=== PATIENT | male | born 1980 | race American Indian/Alaskan Native ===

== ENCOUNTER 2020-08-22 18:27 | Observation (INO) | payer BC ==
[2020-08-22 20:06] LABS: Basophils % (Auto) 0.7 % (0.0-1.8); Eosinophils % (Auto) 0.9 % (0.0-4.3); Hematocrit 39.3 % (35.5-45.6); Hemoglobin 13.2 gm/dl (11.8-15.2); Lymphocytes # (Auto) 1.7 K/mm3 (1.2-5.4); Lymphocytes % (Auto) 33.6 % (13.4-35.0); Mean Corpuscular HGB Conc 34 % (32-34); Mean Corpuscular Volume 103 fl (84-94); Monocytes # (Auto) 0.5 K/mm3 (0.0-0.8); Monocytes % (Auto) 9.6 % (0.0-7.3); Platelet Count 170 K/mm3 (140-440); Red Blood Count 3.81 M/mm3 (3.65-5.03); Red Cell Distribution Width 12.8 % (13.2-15.2)
--- NOTE | 2020-08-22 20:26 | XRay Report ---
CHEST 2 VIEWS INDICATION / CLINICAL INFORMATION: chest pain. COMPARISON: None available. FINDINGS: SUPPORT DEVICES: None. HEART / MEDIASTINUM: No significant abnormality. LUNGS / PLEURA: No significant pulmonary or pleural abnormality. No pneumothorax. ADDITIONAL FINDINGS: No significant additional findings. IMPRESSION: 1. No acute findings. Signer Name: Waldo Beth MD Signed: 08/22/2020 8:22 PM Workstation Name: [id number]
[2020-08-22 20:32] LABS: Alanine Aminotransferase 18 units/L (7-56); Albumin 4.3 g/dL (3.9-5); BUN/Creatinine Ratio 12; Blood Urea Nitrogen 12 mg/dL (9-20); Calcium 9.2 mg/dL (8.4-10.2); Hemolysis Index 13
--- NOTE | 2020-08-22 22:32 | Emergency Department Report ---
ED Chest Pain HPI - General Chief Complaint: Chest Pain Stated Complaint: CHEST PAIN/LT ARM NUMBNESS/PRESSURE Time Seen by Provider: 08/22/20 22:26 Source: patient Mode of arrival: Ambulatory Limitations: No Limitations - History of Present Illness Initial Comments: 40-year-old -[place]ian male presents to the emergency room complaining of chest pain for 3 to 4 weeks with left arm numbness yesterday. Patient has a current history of prostate issues and is currently started on Flomax 1 week ago by urologist. Patient states he last saw his primary care doctor 1 year ago for a physical. Patient denies any recent trauma. Patient does admit to nausea burping with no vomiting. Patient also reports that pain is in the middle of his back between his shoulder blades. Patient stated last night he woke up the patient is resting comfortably and feeling better, is alert and in no distress. With belching and burping took some apple cider vinegar did not relieve his pain. MD Complaint: chest pain Onset/Timin -: week(s) Pain Radiation: LUE Severity scale (0 -10): 5 - Related Data Home Medications Medication Instructions Recorded Confirmed Last Taken Tamsulosin [Flomax] 0.4 mg PO QDAY 08/22/20 08/22/20 08/21/20 19:30 Previous Rx's Medication Instructions Recorded Last Taken Type Famotidine [Pepcid] 20 mg PO BID #60 tablet 08/23/20 Unknown Rx Allergies Allergy/AdvReac Type Severity Reaction Status Date / Time No Known Allergies Allergy Unverified 09/26/13 17:17 Heart Score - HEART Score History: Moderately suspicious EKG: Normal Age: < 45 Risk factors: No known risk factors Troponin: < normal limit HEART Score: 1 ED Review of Systems ROS: Stated complaint: CHEST PAIN/LT ARM NUMBNESS/PRESSURE Other details as noted in HPI Comment: All other systems reviewed and negative ED Past Medical Hx - Past Medical History Previous Medical History?: No - Surgical History Past Surgical History?: No - Social History Smoking Status: Never Smoker Substance Use Type: Marijuana - Medications Home Medications: Home Medications Medication Instructions Recorded Confirmed Last Taken Type Tamsulosin [Flomax] 0.4 mg PO QDAY 08/22/20 08/22/20 08/21/20 19:30 History Famotidine [Pepcid] 20 mg PO BID #60 tablet 08/23/20 Unknown Rx ED Physical Exam - General Limitations: No Limitations General appearance: alert, in no apparent distress - Head Head exam: Present: atraumatic, normocephalic - Eye Eye exam: Present: normal appearance - ENT ENT exam: Present: normal exam, mucous membranes moist - Neck Neck exam: Present: normal inspection, full ROM - Respiratory Respiratory exam: Present: normal lung sounds bilaterally. Absent: respiratory distress - Cardiovascular Cardiovascular Exam: Present: regular rate, normal rhythm. Absent: systolic murmur, diastolic murmur, rubs, gallop - GI/Abdominal GI/Abdominal exam: Present: soft, normal bowel sounds - Rectal Rectal exam: Present: deferred - Extremities Exam Extremities exam: Present: normal inspection, full ROM - Back Exam Back exam: Present: normal inspection - Neurological Exam Neurological exam: Present: alert, oriented X3, normal gait - Psychiatric Psychiatric exam: Present: normal affect, normal mood - Skin Skin exam: Present: warm, dry, intact, normal color. Absent: rash ED Course Vital Signs 08/22/20 08/23/20 08/23/20 19:07 00:18 00:19 Temperature 98.5 F Pulse Rate 65 50 L Respiratory 18 50 H 18 Rate Blood Pressure 120/70 129/79 [Right] O2 Sat by Pulse 99 100 Oximetry REECE score - Reece Score Age > 65: (0) No Aspirin use within the Past 7 Days: (0) No 3 or more CAD Risk Factors: (0) No 2 or more Angina events in past 24 hrs: (0) No Known CAD with more than 50% Stenosis: (0) No Elevated Cardiac Markers: (0) No ST Deviation Greater than 0.5mm: (0) No REECE Score: 0 ED Medical Decision Making - Lab Data Result diagrams: 08/23/20 07:08 08/23/20 07:08 - EKG Data Rate: bradycardia - Radiology Data Radiology results: report reviewed [facility] [address] [place] [address] XRay Report Signed Patient: JEANMARIE MARTINS MR#: [id number] : 1980 Acct:[id number] Age/Sex: 40 / M ADM Date: 08/22/20 Loc: ED Attending Dr: Ordering Physician: GENARO ARCHIBALD NP Date of Service: 08/22/20 Procedure(s): XR chest routine 2V Accession Number(s): [id number] cc: GENARO ARCHIBALD NP Fluoro Time In Minutes: CHEST 2 VIEWS INDICATION / CLINICAL INFORMATION: chest pain. COMPARISON: None available. FINDINGS: SUPPORT DEVICES: None. HEART / MEDIASTINUM: No significant abnormality. LUNGS / PLEURA: No significant pulmonary or pleural abnormality. No pneumothorax. ADDITIONAL FINDINGS: No significant additional findings. IMPRESSION: 1. No acute findings. Signer Name: Waldo Beth MD Signed: 08/22/2020 8:22 PM Workstation Name: [id number] Transcribed By: JAMES Dictated By: Waldo Beth MD Electronically Authenticated By: Waldo Beth MD Signed Date/Time: 08/22/202021 DD/ 21 TD/TT: Print Cancel - Medical Decision Making 40-year-old -N[place]ian male presents to the emergency room complaining of chest pain for 3 to 4 weeks with left arm numbness yesterday. Patient has a cur rent history of prostate issues and is currently started on Flomax 1 week ago by urologist. Patient states he last saw his primary care doctor 1 year ago for a physical. Patient denies any recent trauma. Patient does admit to nausea burping with no vomiting. Patient also reports that pain is in the middle of his back between his shoulder blades. Patient stated last night he woke up the patient is resting comfortably and feeling better, is alert and in no distress. With belching and burping took some apple cider vinegar did not relieve his pain. Discussed patient's case with Dr. Kahn ER attending recommends patient to be admitted for relation. Spoke to hospitalist Dr. Bennett he will come and evaluate patient. Critical care attestation.: If time is entered above; I have spent that time in minutes in the direct care of this critically ill patient, excluding procedure time. ED Disposition Clinical Impression: Atypical chest pain Disposition: OP ADMIT IP TO THIS HOSP Is pt being admited?: Yes Does the pt Need Aspirin: Yes Condition: Stable
[2020-08-22] MEDS ORDERED: MORPHINE 2 MG/1 ML INJ IV PRN (23:00)
[2020-08-22] MEDS ORDERED: NITROGLYCERIN 0.4 MG TAB SUBL SL PRN (23:00)
[2020-08-22] MEDS ORDERED: ACETAMINOPHEN 325 MG TAB PO PRN ×2 (23:00)
[2020-08-22] MEDS ORDERED: ONDANSETRON 4 MG/2 ML INJ IV PRN (23:00)
[2020-08-22] MEDS ORDERED: traMADol 50 MG TAB PO PRN (23:00)
[2020-08-22] MEDS ORDERED: IBUPROFEN 600 MG TAB PO PRN (23:09)
[2020-08-22] MEDS ORDERED: hydrALAZINE 20 MG/1 ML INJ IV PRN (23:10)
--- NOTE | 2020-08-22 23:15 | History and Physical Report ---
History of Present Illness Date of examination: 08/22/20 Date of admission: 08/22/20 Chief complaint: Chest pain History of present illness: 40-year-old -Citizen Of [place] male with history of marijuana abuse was brought to the emergency room complaining of chest pain for 3 to 4 weeks which is pressure- like 5/10 with left arm numbness since yesterday. Patient does admit to nausea burping with no vomiting. Patient also reports that pain is in the middle of his back between his shoulder blades. Patient stated last night he woke up the patient is resting comfortably and feeling better, is alert and in no distress. With belching and burping took some apple cider vinegar did not relieve his pain. Patient has a current history of prostate issues and is currently started on Flomax 1 week ago by urologist. Initial cardiac enzyme is negative troponin is 0.010 Past History Past Medical History: other (Marijuana abuse) Medications and Allergies Allergies Allergy/AdvReac Type Severity Reaction Status Date / Time No Known Allergies Allergy Unverified 09/26/13 17:17 Home Medications Medication Instructions Recorded Confirmed Last Taken Type Cyclobenzaprine HCl [Flexeril] 10 mg PO TID #30 tablet 09/26/13 Unknown Rx HYDROcodone/APAP 5-325 [[place] 1 each PO Q6HR PRN #20 tablet 09/26/13 Unknown Rx 5/325 mg] Ibuprofen [Motrin] 600 mg PO Q8H PRN #50 tablet 09/26/13 Unknown Rx Sulfamethoxazole/Trimethoprim 1 each PO BID #20 tablet 01/04/20 Unknown Rx [Bactrim DS TAB] Active Meds: Active Medications Acetaminophen (Acetaminophen 325 Mg Tab) 650 mg PO Q6H PRN PRN Reason: Pain, Mild (1-3) Acetaminophen (Acetaminophen 325 Mg Tab) 650 mg PO Q4H PRN PRN Reason: Pain MILD(1-3)/Fever >100.5/HUGGINS Ondansetron HCl (Ondansetron 4 Mg/2 Ml Inj) 4 mg IV Q8H PRN PRN Reason: Nausea And Vomiting Sodium Chloride (Sodium Chloride 0.9% 10 Ml Flush Syringe) 10 ml IV PRN PRN PRN Reason: LINE FLUSH Sodium Chloride (Sodium Chloride 0.9% 10 Ml Flush Syringe) 10 ml IV BID KAMARI Tramadol HCl (Tramadol 50 Mg Tab) 50 mg PO Q6H PRN PRN Reason: Pain, Moderate (4-6) Review of Systems Cardiovascular: chest pain, palpitations Exam - Constitutional Vitals: Temp Pulse Resp BP Pulse Ox 98.5 F 65 18 120/70 99 08/22/20 19:07 08/22/20 19:07 08/22/20 19:07 08/22/20 19:07 08/22/20 19:07 General appearance: Present: no acute distress, well-nourished - EENT Eyes: Present: PERRL ENT: hearing intact, clear oral mucosa - Neck Neck: Present: supple, normal ROM - Respiratory Respiratory effort: normal Respiratory: bilateral: CTA - Cardiovascular Heart Sounds: Present: S1 & S2. Absent: rub, click - Extremities Extremities: pulses symmetrical, No edema Peripheral Pulses: within normal limits - Abdominal General gastrointestinal: Present: soft, non-tender, non-distended, normal bowel sounds Male genitourinary: Present: normal - Integumentary Integumentary: Present: clear, warm, dry - Musculoskeletal Musculoskeletal: gait normal, strength equal bilaterally - Psychiatric Psychiatric: appropriate mood/affect, intact judgment & insight - Neurologic Neurologic: CNII-XII intact, moves all extremities HEART Score - HEART Score EKG: Normal Age: < 45 Risk factors: No known risk factors Troponin: Troponin T < 0.010 ng/mL (0.00-0.029) 08/22/20 19:49 Troponin: < normal limit Results - Labs CBC & Chem 7: 08/22/20 19:49 08/22/20 19:49 Labs: Laboratory Last Values WBC 5.1 K/mm3 (4.5-11.0) 08/22/20 19:49 RBC 3.81 M/mm3 (3.65-5.03) 08/22/20 19:49 Hgb 13.2 gm/dl (11.8-15.2) 08/22/20 19:49 Hct 39.3 % (35.5-45.6) 08/22/20 19:49 MCV 103 fl (84-94) H 08/22/20 19:49 MCH 35 pg (28-32) H 08/22/20 19:49 MCHC 34 % (32-34) 08/22/20 19:49 RDW 12.8 % (13.2-15.2) L 08/22/20 19:49 Plt Count 170 K/mm3 (140-440) 08/22/20 19:49 Lymph % (Auto) 33.6 % (13.4-35.0) 08/22/20 19:49 [place] % (Auto) 9.6 % (0.0-7.3) H 08/22/20 19:49 Eos % (Auto) 0.9 % (0.0-4.3) 08/22/20 19:49 Baso % (Auto) 0.7 % (0.0-1.8) 08/22/20 19:49 Lymph # (Auto) 1.7 K/mm3 (1.2-5.4) 08/22/20 19:49 [place] # (Auto) 0.5 K/mm3 (0.0-0.8) 08/22/20 19:49 Eos # (Auto) 0.0 K/mm3 (0.0-0.4) 08/22/20 19:49 Baso # (Auto) 0.0 K/mm3 (0.0-0.1) 08/22/20 19:49 Seg Neutrophils % 55.2 % (40.0-70.0) 08/22/20 19:49 Seg Neutrophils # 2.8 K/mm3 (1.8-7.7) 08/22/20 19:49 Sodium 138 mmol/L (137-145) 08/22/20 19:49 Potassium 3.9 mmol/L (3.6-5.0) 08/22/20 19:49 Chloride 104.8 mmol/L (98-107) 08/22/20 19:49 Carbon Dioxide 25 mmol/L (22-30) 08/22/20 19:49 Anion Gap 12 mmol/L 08/22/20 19:49 BUN 12 mg/dL (9-20) 08/22/20 19:49 Creatinine 1.0 mg/dL (0.8-1.3) 08/22/20 19:49 Estimated GFR > 60 ml/min 08/22/20 19:49 BUN/Creatinine Ratio 12 % 08/22/20 19:49 Glucose 86 mg/dL (75-100) 08/22/20 19:49 Calcium 9.2 mg/dL (8.4-10.2) 08/22/20 19:49 Total Bilirubin 0.50 mg/dL (0.1-1.2) 08/22/20 19:49 AST 23 units/L (5-40) 08/22/20 19:49 ALT 18 units/L (7-56) 08/22/20 19:49 Alkaline Phosphatase 64 units/L (35-129) 08/22/20 19:49 Troponin T < 0.010 ng/mL (0.00-0.029) 08/22/20 19:49 Total Protein 6.8 g/dL (6.3-8.2) 08/22/20 19:49 Albumin 4.3 g/dL (3.9-5) 08/22/20 19:49 Albumin/Globulin Ratio 1.7 % 08/22/20 19:49 - Imaging and Cardiology Chest x-ray: image reviewed Assessment and Plan VTE prophylaxis?: Chemical Plan of care discussed with patient/family: Yes - Patient Problems (1) Acute coronary syndrome Current Visit: Yes Status: Acute Plan to address problem: Admit the patient to the cardiac telemetry. Put the patient on chest pain pathway. Aspirin 325 mg p.o. daily. Lipitor 40 mg p.o. daily. Nitroglycerin as needed. Due to the serial cardiac enzyme. We also do a Lexiscan. If needed will consult cardiology. Heparin 5000 units subcu every 8 hours. Recheck lipid panel and CBC BMP in the morning (2) Marijuana abuse Current Visit: Yes Status: Acute Plan to address problem: Patient counseled regarding quit marijuana (3) DVT prophylaxis Current Visit: Yes Status: Acute Plan to address problem: Heparin 5000 units subcu every 8 hours for DVT prophylaxis and Protonix 40 mg p.o. daily for GI prophylaxis. Patient is a full code
[2020-08-23] MEDS ORDERED: HEPARIN 5,000 UNIT/1 ML VIAL SUB-Q SCH (06:00)
[2020-08-23 07:39] LABS: BUN/Creatinine Ratio 13; Blood Urea Nitrogen 12 mg/dL (9-20); Calcium 9.1 mg/dL (8.4-10.2); Hemolysis Index 35
[2020-08-23 07:46] LABS: Basophils % (Auto) 0.7 % (0.0-1.8); Eosinophils # (Auto) 0.1 K/mm3 (0.0-0.4); Eosinophils % (Auto) 2.1 % (0.0-4.3); Hemoglobin 13.3 gm/dl (11.8-15.2); Lymphocytes # (Auto) 1.7 K/mm3 (1.2-5.4); Mean Corpuscular HGB Conc 34 % (32-34); Mean Corpuscular Volume 103 fl (84-94); Monocytes # (Auto) 0.4 K/mm3 (0.0-0.8); Monocytes % (Auto) 9.6 % (0.0-7.3); Platelet Count 166 K/mm3 (140-440); Red Cell Distribution Width 12.9 % (13.2-15.2)
[2020-08-23] MEDS ORDERED: CYCLOBENZAPRINE 10 MG TAB PO SCH (08:00)
[2020-08-23] MEDS ORDERED: REGADENOSON 0.4 MG/5 ML INJ IV ONE (08:40)
[2020-08-23] MEDS ORDERED: SULFAMETHOXAZOLE/TRIMETHOPRIM 800/160MG DS TAB PO SCH (10:00)
[2020-08-23] MEDS ORDERED: PANTOPRAZOLE 40 MG TAB PO SCH (10:00)
[2020-08-23] MEDS ORDERED: ASPIRIN EC 325 MG TAB PO SCH (10:00)
--- NOTE | 2020-08-23 12:00 | Nuclear Medicine Report ---
APPROVED REPORT Exam: Nuclear Stress Test Indication: Chest pain BMI: 0 Stress Test Details Stress Test: Exercise stress testing was performed using a Darius protocol. HR Resting HR: 47 bpmMax Heart Rate (APMHR): 179 bpm Max HR Achieved: 155 bpmTarget HR (85% APMHR): 152 bpm % of APMHR: 86 Recovery HR: 68 bpm HR response to stress: Normal HR response to stress BP Resting BP: 122/79 mmHg Max BP: 155/79 mmHg Recovery BP: 126/71 mmHg BP response to stress: Normal blood pressure response to stress. ECG Resting ECG: Sinus Bradycardia, Sinus Tachycardia, Sinus Rhythm, normal EKG Stress ECG: Sinus Tachycardia ST Change: Horizontal ST depression Maximum ST Deviation: 2 mm Arrhythmia: None Recovery ECG: Sinus Rhythm Recovery ST Change: None Clinical Reason for Termination: Fatigue Stress Symptoms: Fatigue Exercise duration: 12 min 00 sec Exercise capacity: 12.2 METs Overall Exercise Capacity for Age: Good Stress ECG Conclusion postive stress ekg NM EXAM: Myocardial Perfusion REST/STRESS Imaging Protocol: Rest Tc-99m/Stress Tc-99m 1 day Resting Data Rest SPECT myocardial perfusion imaging was performed in supine position 45 minutes following the intravenous injection of 10 mCi of Tc-99m Myoview. Time of rest injection: 0811 Exercise Stress At peak stress, the patient was injected intravenously with 28mCi of Tc-99m Myoview. Time of stress injection: 0900 Gated Stress SPECT was performed 20 minutes after stress injection. The images were gated to evaluate regional wall motion and calculate left ventricular ejection fraction. Study Quality Study: excellent Lung Uptake: Normal Study Data TID = 0.99. Perfusion The rest and stress images show normal perfusion. Normal perfusion on both the stress and rest images. Wall Motion The rest and stress images show normal left ventricular wall motion. There is a area of in the entireapicalmid and apical segment of the wall which is seen on . Nuclear Conclusion ECG Findings: positive for ischemia Clinical Findings: negative for ischemia Nuclear Findings: negative for ischemia Exercise Capacity: normal Left Ventricular Function: normal Risk Study: low Normal study. No scintigraphic evidence for myocardial ischemia or scar. Normal left ventricular size and function with no regional wall motion abnormalities. Conclusion postive stress ekg
[2020-08-23 12:09] VITALS: BP 119/85
--- NOTE | 2020-08-23 12:10 | Electrocardiograph Report ---
[facility] Test Date: 2020-08-22 Test Time: 19:31:04 Pat Name: JEANMARIE MARTINS Department: Room: A486 1 Gender: M Showroom Manager: PINEDA : 1980 Requested By: GENARO ARCHIBALD Order Number: [id number] Reading MD: Donnell Anderson Measurements Intervals [place] Rate: 64 P: 63 DC: 140 QRS: 88 QRSD: 100 T: 69 QT: 386 QTc: 394 Interpretive Statements Sinus rhythm Atrial premature complex No previous ECG available for comparison Electronically Signed On 08-23-2020 12:09:56 EDT by Donnell Anderson
--- NOTE | 2020-08-23 12:13 | Electrocardiograph Report ---
[facility] Test Date: 2020-08-23 Test Time: 07:50:23 Pat Name: JEANMARIE MARTINS Department: Room: A486 1 Gender: M Full Time Babysitter: SHREYAS : 1980 Requested By: JOSEPHINE JOHNSTON Order Number: [id number] Reading MD: Donnell Anderson Measurements Intervals [place] Rate: 44 P: -53 IA: 130 QRS: 80 QRSD: 99 T: 65 QT: 433 QTc: 372 Interpretive Statements Sinus or ectopic atrial bradycardia ST elev, probable normal early repol pattern Compared to ECG 08/22/2020 19:31:04 Electronically Signed On 08-23-2020 12:13:38 EDT by Donnell Anderson
--- NOTE | 2020-08-23 13:20 | Discharge Summary ---
Providers - Providers Date of Admission: 08/22/20 23:01 Date of discharge: 08/23/20 Attending physician: JIM TEJEDA MD 08/22/20 Consult to Cardiac Rehabilitation [CONS] Routine Reason For Exam: Phase I Primary care physician: CLINICAL CODER Hospitalization Reason for admission: Chest pain, marijuana abuse Condition: Stable Pertinent studies: Exercise stress test was done and negative Hospital course: 40-year-old -[place] male with history of marijuana abuse was brought to the emergency room complaining of chest pain for 3 to 4 weeks which is pressure-like 5/10 with left arm numbness since yesterday. Patient does admit to nausea burping with no vomiting. Patient also reports that pain is in the middle of his back between his shoulder blades. Patient stated last night he woke up the patient is resting comfortably and feeling better, is alert and in no distress. With belching and burping took some apple cider vinegar did not relieve his pain.Patient has a current history of prostate issues and is currently started on Flomax 1 week ago by urologist. Hospital course Patient was admitted to the floor and serial cardiac enzymes were negative, x- ray resolved. Exercise stress test was done this morning and negative for acute ischemia. Patient looks like you have GERD and discharged with famotidine. Patient was hemodynamically stable at the time of discharge. Disposition: DC- TO HOME OR SELFCARE Final Discharge Diagnosis (Prints w/discharge instructions): Chest pain. Marijuana abuse. GERD Time spent for discharge: 25 minutes - Discharge Diagnoses (1) GERD (gastroesophageal reflux disease) Status: Acute (2) Atypical chest pain Status: Acute (3) Marijuana abuse Status: Acute Core Measure Documentation - Palliative Care Palliative Care/ Comfort Measures: Not Applicable - Core Measures Any of the following diagnoses?: none Exam - Physical Exam Narrative exam: Not in cardiopulmonary distress. The patient appeared well nourished and normally developed. Vital signs as documented. Head exam is unremarkable. No scleral icterus . Neck is without jugular venous distension, thyromegaly, or carotid bruits. Lungs are clear to auscultation. Cardiac exam reveals regular rate and Rhythm. Abdominal exam reveals normal bowel sounds, nontender, no organomegaly. Extremities are nonedematous and both femoral and pedal pulses are normal. MOBILE APPLICATION ARCHITECT: Alert and oriented 3. No focal weakness. - Constitutional Vitals: Temp Pulse Resp BP Pulse Ox 97.5 F L 52 L 16 119/85 100 08/23/20 04:22 08/23/20 10:00 08/23/20 04:22 08/23/20 09:12 08/23/20 12:02 Plan Activity: no restrictions Weight Bearing Status: Full Weight Bearing Diet: regular Follow up with: KENDAL RUFFIN MD [Staff Physician] - 3-5 Days PRIMARY CAREMD [Primary Care Provider] - 3-5 Days Prescriptions: Famotidine [Pepcid] 20 mg PO BID #60 tablet
== END 2020-08-23 15:00 | disposition home or self-care (01) ==
LOC: ED 18:27 → 4A 23:01
PROVIDERS: ADMIT Hospitalist; ATTEND Internal Medicine
DX: R07.89 Other chest pain (principal); F12.10 Cannabis abuse, uncomplicated; K21.9 Gastro-esophageal reflux disease without esophagitis
CPT/HCPCS: 36415; 71046; 78452; 80048; 80053; 84484; 85025; 93005; 93017; 96372; 99285; A9502; G0378; J1644